=== PATIENT | female | born 1960 | race Caucasian/White ===

== ENCOUNTER 2018-03-17 15:17 | Outpatient (CLI) | payer OTHER ==
--- NOTE | 2018-03-25 11:26 | MMO ---
BILATERAL SCREENING MAMMOGRAM: Date: 03/17/18 COMPARISON: 04/22/15, 02/23/13, 10/03/09. HISTORY: Annual screening exam. This patient's mammogram was interpreted with the assistance of computer-aided detection. FINDINGS: The breasts are heterogeneously dense. Vascular and benign calcifications are seen in both breasts. T hese appear stable. There is no dominant mass, suspicious calcification, or other sign of malignancy. IMPRESSION: BIRADS 2: Benign Finding(s) POS: [id number]
== END 2018-03-17 15:18 | disposition home or self-care (01) ==
LOC: SCSMAMMO 15:17
PROVIDERS: ATTEND Family Medicine
DX: Z12.31 Encounter for screening mammogram for malignant neoplasm of breast (principal)
CPT/HCPCS: 77067